=== PATIENT | male | born 1955 | race Caucasian/White ===

== ENCOUNTER 2016-12-04 19:09 | Emergency (ER) | payer OTHER ==
[~2016-12-04] VITALS: Ht 172.7 cm; Wt 72.5 kg
[2016-12-04 19:26] VITALS: Ht 172.7 cm; Wt 72.5 kg
[2016-12-04] MEDS ORDERED: KETOROLAC 30 MG INJ IM STA (20:11)
[2016-12-04] MEDS ORDERED: IBUP-1542 PO (20:13)
[2016-12-04] MEDS ORDERED: ALBU8.5H3 INH (20:13)
[2016-12-04] MEDS ORDERED: AZIT500T3 PO (20:13)
--- NOTE | 2016-12-04 20:23 | ERD ---
ER Documentation Chief Complaint Date/Time DATE: 12/04/16 TIME: 20:21 Chief Complaint Pt with generalized body pain andxious and tremors. HPI 61-year-old man presents with generalized body aches similar previous episodes and complaints of anxiety. He states similar symptoms have occurred in the past usually associated with anxiety. He also states he feels like he has a cold with recent congestion and cough. He is a smoker. He denies fevers or chills, no vomiting or diarrhea, no chest pain, no calf or leg swelling. Patient denies recent antibiotic use. ROS All systems reviewed and are negative except as per history of present illness. Medications Home Meds Active Scripts Ibuprofen* (Ibuprofen*) 600 Mg Tablet, 600 MG PO Q8 for PAIN AND/OR INFLAMMATION , #30 TAB Prov:MANI SHOOK MD 12/04/16 Azithromycin* (Zithromax*) 500 Mg Tablet, 500 MG PO DAILY for 5 Days, TAB Prov:MANI SHOOK MD 12/04/16 Albuterol Sulfate* (Proair HFA*) 8.5 Gm Hfa.aer.ad, 2 PUFF INH Q6H Y for COUGH, #1 INHALER Prov:MANI SHOOK MD 12/04/16 PMhx/Soc Diabetes mellitus, chronic obstructive pulmonary disease, hypertension, depression, schizoaffective disorder History of Surgery: Yes (wisdom teeth, other dental, tonsils) Anesthesia Reaction: No Hx Neurological Disorder: No Hx Respiratory Disorders: Yes (copd) Hx Cardiac Disorders: Yes (htn) Hx Psychiatric Problems: Yes (schizoaffective, depression) Hx Miscellaneous Medical Probl: No Hx Alcohol Use: Yes (seldom) Hx Substance Use: No Hx Tobacco Use: Yes Smoking Status: Current some day smoker FmHx Family History: No diabetes Physical Exam Vitals Vital Signs Date Time Temp Pulse Resp B/P Pulse Ox O2 Delivery O2 Flow Rate FiO2 12/04/16 19:26 97.7 92 18 123/82 100 Physical Exam GENERAL: Well-developed, well-nourished, well-hydrated, appears anxious HEENT: Moist mucous membranes, pink conjunctiva, no cervical spine tenderness or step-off deformities, no goiter, no jaundice or icterus, extraocular movements intact without pain. No submandibular induration, and no pharyngeal erythema NEURO: Alert and oriented 3, cranial nerves II through XII intact bilaterally, pupils equal round reactive to light, no focal deficits or facial asymmetry, sensation intact distally Strength 5/5 in upper and lower extremities bilaterally CARDIAC: Regular rate and rhythm, no murmurs rubs or gallops LUNGS: Clear bilaterally no wheezing crackles or stridor ABDOMEN: Soft nontender, no guarding, no rigidity, no rebound, no psoas sign no obturator sign. Normoactive bowel sounds SKIN: Warm and dry to touch, no abrasions, contusions, or hematomas, no lacerations, no ecchymosis, no target lesions, and without ulcers EXTREMITIES: No clubbing cyanosis or edema, calves are bilaterally symmetrical, no Homans sign, no popliteal cord sign. Distal pulses equal and bilateral PSYCH: Anxious Results 24 hrs Current Medications Medications (Trade) Dose Ordered Sig/Candida Route PRN Reason Start Time Stop Time Status Last Admin Dose Admin Alprazolam (Xanax) 0.5 mg ONCE ONCE PO 12/04/16 20:30 12/04/16 20:30 DC Ketorolac Tromethamine (Toradol) 30 mg ONCE STAT IM 12/04/16 20:11 12/04/16 20:12 DC 12/04/16 20:26 Lorazepam (Ativan) 1 mg ONCE ONCE PO 12/04/16 20:30 12/04/16 20:31 DC 12/04/16 20:26 Procedures/MDM EKG performed, read by me revealed a normal sinus rhythm at 72 bpm, normal axis , with a right ventricular conduction delay and a QRS duration of 102 ms, no concerning ST elevations or depressions noted. I administered lorazepam 1 mg p.o. and Toradol 30 mg intramuscular injection with good response. Patient's vital signs are normal and his symptoms including anxiety have improved. He looks well and will be managed as an outpatient with oral antibiotics and albuterol pump which she ran out of. Differential diagnoses considered, included but not limited to acute coronary syndrome, pulmonary embolism, aortic dissection, abdominal aortic aneurysm, sepsis, stroke, meningitis, encephalitis, pneumonia, appendicitis, cholecystitis , bowel obstruction, pyelonephritis, nephrolithiasis, cystitis, as well as metabolic, hematologic, and electrolyte abnormalities. As well as abscess, cellulitis, fractures, and dislocations. Patient feels much better at this time, and vital signs are normal, symptoms have improved. I did give strict instructions to return to the ED if symptoms continue or worsen, patient will otherwise follow-up with primary care physician. Patient understood instructions and agreed to plan. Departure Diagnosis: Primary Impression: Bronchitis Additional Impression: Anxiety Condition: Good Patient Instructions: Anxiety Reaction, Bronchitis With Wheezing (Adult) MANI SHOOK MD December 04, 2016 20:22
[2016-12-04] MEDS ORDERED: ALPRAZOLAM 0.25 MG TAB PO ONE (20:30)
[2016-12-04] MEDS ORDERED: LORAZEPAM 1 MG TAB PO ONE (20:30)
== END 2016-12-04 21:00 | disposition home or self-care (01) ==
LOC: E/R 19:09
DX: J20.9 Acute bronchitis, unspecified (principal); E11.9 Type 2 diabetes mellitus without complications; J44.9 Chronic obstructive pulmonary disease, unspecified; I10 Essential (primary) hypertension; F17.210 Nicotine dependence, cigarettes, uncomplicated
CPT/HCPCS: 93005; 96372; 99284; J1885

== ENCOUNTER 2016-12-17 22:35 | Inpatient (IN) | payer OTHER ==
[~2016-12-17] VITALS: Ht 182.9 cm; Wt 79.3 kg
[~2016-12-17 22:35] MED LIST: ALBU8.5H3 INH; ATROPINE 1 MG/10 ML SYRINGE ONE; AZIT500T3 PO; IBUP-1542 PO
[2016-12-17 22:50] LABS: ADD SCAN DIFF NO
[2016-12-17 22:55] LABS: BASOPHILS % 0.1 % (0.0-2.0); EOSINOPHILS % 0.1 % (0.0-7.0); HEMATOCRIT 39.5 % (42.0-52.0); LYMPHOCYTES # 1.6 10^3/ul (0.8-2.9); LYMPHOCYTES % 10.1 % (15.0-51.0); MEAN CORPUSCULAR HEMOGLOBIN 30.8 pg (29.0-33.0); MEAN CORPUSCULAR HGB CONC 32.9 g/dl (32.0-37.0); MEAN CORPUSCULAR VOLUME 93.6 fl (82.0-101.0); MEAN PLATELET VOLUME 9.7 fl (7.4-10.4); MONOCYTE # 0.4 10^3/ul (0.3-0.9); MONOCYTES % 2.7 % (0.0-11.0); NEUTROPHIL # 13.3 10^3/ul (1.6-7.5); NEUTROPHILS % 86.7 % (39.0-77.0); PLATELET COUNT 261 10^3/UL (140-415); RED BLOOD COUNT 4.22 10^6/ul (4.70-6.10); RED CELL DISTRIBUTION WIDTH 12.8 % (11.5-14.5); WHITE BLOOD COUNT 15.3 10^3/ul (4.8-10.8)
[2016-12-17] MEDS ORDERED: VERAPAMIL 5 MG INJ ONE ×2 (22:59→23:36)
[2016-12-17] MEDS ORDERED: MIDAZOLAM 1 MG/ML 2 ML INJ ONE (22:59)
[2016-12-17] MEDS ORDERED: HEPARIN 1000 UNITS/ML 10 ML INJ ONE (22:59)
[2016-12-17] MEDS ORDERED: LIDOCAINE 1% (MDV) 20 ML INJ ONE (22:59)
[2016-12-17] MEDS ORDERED: NITROGLYCERIN (IC) 100 MCG/ML INJ ONE (22:59)
[2016-12-17] MEDS ORDERED: IODIXANOL LOCM 100 ML BTL ONE (22:59)
[2016-12-17] MEDS ORDERED: FENTAnyl 50 MCG/ML VIAL ONE (22:59)
[2016-12-17] MEDS ORDERED: ONDANSETRON 4 MG INJ ONE ×3 (23:00→23:38)
[2016-12-17] MEDS ORDERED: ATORVASTATIN 80 MG TAB PO ONE (23:00)
[2016-12-17] MEDS ORDERED: CLOPIDOGREL 75 MG TAB PO ONE (23:00)
[2016-12-17] MEDS ORDERED: HEPARIN 1000 UNITS/ML 10 ML INJ IV ONE (23:00)
[2016-12-17] MEDS ORDERED: ASPIRIN 81 MG TAB PO ONE (23:00)
[2016-12-17] MEDS ORDERED: ONDANSETRON 4 MG INJ IV STA (23:05)
[2016-12-17 23:07] LABS: INR 1.11; PARTIAL THROMBOPLASTIN TIME 26.5 Sec (25.0-35.0); PROTIME 14.3 Sec (12.2-14.2); PT RATIO 1.1
[2016-12-17] MEDS ORDERED: SOD CHLORIDE 0.9% 500 ML ONE (23:14)
[2016-12-17] MEDS ORDERED: SOD CHLORIDE 0.9% 1,000 ML IV ONE ×2 (23:30)
[2016-12-17 23:32] LABS: CALCIUM 9.3 mg/dl (8.4-10.2); POTASSIUM 3.9 mmol/L (3.5-5.1)
[2016-12-17] MEDS ORDERED: PHENYLephrine 10 MG INJ ONE (23:32)
[2016-12-17 23:35] LABS: TROPONIN-I 0.94 ng/ml (0.00-0.12)
[2016-12-17 23:37] LABS: CREATININE 1.31 mg/dl (0.61-1.24)
[2016-12-17] MEDS ORDERED: NORepinephrine 8MG/250 ML (PMX 250 ML ONE (23:39)
[2016-12-17] MEDS ORDERED: ATROPINE 1 MG/10 ML SYRINGE ONE (23:49)
[2016-12-18] VITALS (51 sets, daily range): BP systolic 61–140; BP diastolic 33–126; PULSE 107–157; RESP 15–34; Ht 182.9 cm; Wt 79.3 kg
[2016-12-18] MEDS ORDERED: EPTIFIBATIDE 20 ML ONE (00:19)
[2016-12-18] MEDS ORDERED: PHENYLephrine 20MG IN 250 ML 250 ML ONE (00:20)
[2016-12-18] MEDS ORDERED: LIDOCAINE 2 GM/D5W 500 ML ONE (00:21)
[2016-12-18] MEDS ORDERED: AMIODARONE 150 MG INJ ONE (00:32)
[2016-12-18] MEDS ORDERED: HEPARIN 1000 UNITS/ML 10 ML INJ IV ONE (01:00)
[2016-12-18] MEDS ORDERED: HEPARIN 25000 UNITS/250 ML 250 ML IV SCH (01:00)
[2016-12-18] MEDS ORDERED: HEPARIN 1000 UNITS/ML 10 ML INJ IV PRN (01:00)
--- NOTE | 2016-12-18 01:17 | RADRPT ---
PROCEDURE: XR Chest. CLINICAL INDICATION: Chest pain. TECHNIQUE: Single frontal view of the chest. COMPARISON: None. FINDINGS: Mild cardiomegaly. Pulmonary vascular ingestion and mild patchy lung base atelectasis versus airspa ce disease. No signs of pleural fluid or pneumothorax are seen. The osseous structures and soft tiss ues are unremarkable. IMPRESSION: Mild failure. RPTAT: [facility] Physician Philippe Date Time Electronically viewed and signed by Holly Fraser Physician on 12/18/2016 01:17 RS/
[2016-12-18] MEDS: LIDOCAINE 2 GM/D5W 500 ML IV SCH ×2 (01:50→08:42)
--- NOTE | 2016-12-18 03:04 | ERA ---
ER Documentation Chief Complaint Date/Time DATE: 12/17/16 TIME: On arrival Chief Complaint Chest pain HPI The patient is a 61-year-old male, presenting to the ER because of substernal chest pain radiating down to the left arm for 2 hours. He has similar symptoms previously, denies chest pain with exertion or vomiting. He was treated by EMS with one nitroglycerin that dropped his blood pressure and aspirin 160 mg p.o. with some response. He denies dyspnea, abdominal pain, vomiting, dysuria, diarrhea. On arrival to the ER, after I reviewed the EMS EKG, I activated a code STEMI Past medical history: Schizoaffective disorder, depression, diabetes mellitus, COPD, hypertension ROS All systems reviewed and are negative except as per history of present illness. Medications Home Meds Active Scripts Ibuprofen* (Ibuprofen*) 600 Mg Tablet, 600 MG PO Q8 for PAIN AND/OR INFLAMMATION , #30 TAB Prov:MANI SHOOK MD 12/04/16 Azithromycin* (Zithromax*) 500 Mg Tablet, 500 MG PO DAILY for 5 Days, TAB Prov:MANI SHOOK MD 12/04/16 Albuterol Sulfate* (Proair HFA*) 8.5 Gm Hfa.aer.ad, 2 PUFF INH Q6H Y for COUGH, #1 INHALER Prov:MANI SHOOK MD 12/04/16 Allergies Allergies: Coded Allergies: fluphenazine (Verified Allergy, Unknown, 12/17/16) PMhx/Soc History of Surgery: Yes (wisdom teeth, other dental, tonsils) Anesthesia Reaction: No Hx Neurological Disorder: No Hx Respiratory Disorders: Yes (copd) Hx Cardiac Disorders: Yes (htn) Hx Psychiatric Problems: Yes (schizoaffective, depression) Hx Miscellaneous Medical Probl: No Hx Alcohol Use: Yes (seldom) Hx Substance Use: No Hx Tobacco Use: Yes Smoking Status: Former smoker Physical Exam Vitals Vital Signs Date Time Temp Pulse Resp B/P Pulse Ox O2 Delivery O2 Flow Rate FiO2 12/17/16 22:40 Nasal Cannula 6 12/17/16 22:35 96.6 125 22 101/65 100 Physical Exam Const: No acute distress. Head: Atraumatic. Eyes: Normal Conjunctiva. ENT: Normal External Ears, Nose and Mouth. Neck: Full range of motion. No meningismus. Resp: Clear to auscultation bilaterally. Cardio: Regular but tachycardic Abd: Soft, non distended, normal bowel sounds, non tender. Skin: No petechiae or rashes. Back: No midline or flank tenderness. Ext: No cyanosis, or edema. Neur: Awake and alert. No focal deficit Psych: Normal Mood and Affect. Result Diagram: 12/17/16223212/17/162232 Results 24 hrs Laboratory Tests Test 12/17/16 22:33 White Blood Count 15.310^3/ul Red Blood Count 4.2210^6/ul Hemoglobin 13.0g/dl Hematocrit 39.5% Mean Corpuscular Volume 93.6fl Mean Corpuscular Hemoglobin 30.8pg Mean Corpuscular Hemoglobin Concent 32.9g/dl Red Cell Distribution Width 12.8% Platelet Count 40673^3/UL Mean Platelet Volume 9.7fl Neutrophils % 86.7% Lymphocytes % 10.1% Monocytes % 2.7% Eosinophils % 0.1% Basophils % 0.1% Nucleated Red Blood Cells % 0.0/100WBC Neutrophils # 13.310^3/ul Lymphocytes # 1.610^3/ul Monocytes # 0.410^3/ul Eosinophils # 0.010^3/ul Basophils # 0.010^3/ul Nucleated Red Blood Cells # 0.010^3/ul Prothrombin Time 14.3Sec Prothrombin Time Ratio 1.1 INR International Normalized Ratio 1.11 Activated Partial Thromboplast Time 26.5Sec Sodium Level 141mmol/L Potassium Level 3.9mmol/L Chloride Level 103mmol/L Carbon Dioxide Level 20mmol/L Anion Gap 22 Blood Urea Nitrogen 23mg/dl Creatinine 1.31mg/dl Glucose Level 118mg/dl Calcium Level 9.3mg/dl Troponin I 0.940ng/ml Current Medications Medications (Trade) Dose Ordered Sig/Candida Route PRN Reason Start Time Stop Time Status Last Admin Dose Admin Heparin Sodium (Porcine) (Heparin (1000 Units/ml)) 5,000 unit ONCE ONCE IV 12/17/16 23:00 12/17/16 23:01 DC 12/17/16 22:48 Clopidogrel Bisulfate (plaVIX) 600 mg ONCE ONCE PO 12/17/16 23:00 12/17/16 23:01 DC 12/17/16 22:45 Aspirin (Aspirin) 162 mg ONCE ONCE PO 12/17/16 23:00 12/17/16 23:01 DC 12/17/16 22:45 Atorvastatin Calcium (Lipitor) 80 mg ONCE ONCE PO 12/17/16 23:00 12/17/16 23:01 DC 12/17/16 22:48 Heparin Sodium (Porcine) (Heparin (1000 Units/ml)) 10,000 unit STK-MED ONCE .ROUTE 12/17/16 22:59 12/17/16 23:00 DC Lidocaine (Xylocaine 1% (Mdv) 20 ml) 20 ml STK-MED ONCE .ROUTE 12/17/16 22:59 12/17/16 23:00 DC Iodixanol 100 ml 100 ml STK-MED ONCE .ROUTE 12/17/16 22:59 12/17/16 23:00 DC Heparin Sodium/ Sodium Chloride (Heparin 1000 Units/NS (A-Line)) 1,500 ml @ ud STK-MED ONCE .ROUTE 12/17/16 22:59 12/17/16 23:00 DC Fentanyl (Sublimaze) 100 mcg STK-MED ONCE .ROUTE 12/17/16 22:59 12/17/16 23:00 DC Midazolam HCl (Versed) 2 mg STK-MED ONCE .ROUTE 12/17/16 22:59 12/17/16 23:00 DC Verapamil HCl (Verapamil) 5 mg STK-MED ONCE .ROUTE 12/17/16 22:59 12/17/16 23:00 DC Nitroglycerin (Nitroglycerin (Intracoronary)) 1,000 mcg STK-MED ONCE .ROUTE 12/17/16 22:59 12/17/16 23:00 DC Ondansetron HCl (Zofran Inj) 4 mg STK-MED ONCE .ROUTE 12/17/16 23:00 12/17/16 23:01 DC Ondansetron HCl (Zofran Inj) 4 mg ONCE STAT IV 12/17/16 23:05 12/17/16 23:06 DC Procedures/MDM EKG: Read by emergency physician Rate/Rhythm: Atrial fibrillation at 120 beats/min with RVR QRS, ST, T-waves: Acute inferior wall PR with reciprocal change, no PVC Impression: Abnormal EKG MEDICAL MAKING DECISION: The patient is a 61-year-old male, with multiple cardiac risk factors, presenting with acute STEMI and acute new onset atrial fibrillation. Consultation: I discussed the patient with the on-call culvert installer Dr. Petty at 10:35 PM, who recommended heparin 5000 units IV, Plavix 600 mg p.o., additional aspirin 162 mg p.o., Lipitor 80 mg p.o.. All were given prior to going to the [facility] labs and chest x-ray were pending prior to going to the [facility] Critical Care: Time: 35 minutes excluding all billable procedures. Treatments/Evaluations: Close monitoring and treatment of unstable vital signs, cardiorespiratory, and neurologic status, while maintaining tight balance of fluid, respiratory, and cardiac interventions. Departure Diagnosis: Primary Impression: ST elevation myocardial infarction (STEMI) Condition: Critical Comments I discussed the findings with the patient. I discussed the patient with the on- call hospitalist Dr. Lamb at 11:10 PM who was made aware of the lab, the treatment, the patient condition. The patient is admitted to ICU after cardiac cath LISA BLANCO MD December 18, 2016 03:04
[2016-12-18 03:08] LABS: ADD SCAN DIFF NO
[2016-12-18 03:11] LABS: BASOPHILS % 0.1 % (0.0-2.0); HEMATOCRIT 35.4 % (42.0-52.0); HEMOGLOBIN 12.1 g/dl (14.0-18.0); LYMPHOCYTES # 0.8 10^3/ul (0.8-2.9); LYMPHOCYTES % 4.5 % (15.0-51.0); MEAN CORPUSCULAR HEMOGLOBIN 31.8 pg (29.0-33.0); MEAN CORPUSCULAR HGB CONC 34.2 g/dl (32.0-37.0); MEAN CORPUSCULAR VOLUME 93.2 fl (82.0-101.0); MONOCYTE # 0.6 10^3/ul (0.3-0.9); MONOCYTES % 3.8 % (0.0-11.0); NEUTROPHIL # 15.2 10^3/ul (1.6-7.5); NEUTROPHILS % 91.1 % (39.0-77.0); PLATELET COUNT 269 10^3/UL (140-415); RED CELL DISTRIBUTION WIDTH 12.7 % (11.5-14.5); WHITE BLOOD COUNT 16.7 10^3/ul (4.8-10.8)
[2016-12-18] MEDS ORDERED: NORepinephrine 8MG/250 ML (PMX 250 ML IV SCH (03:30)
[2016-12-18] MEDS ORDERED: PHENYLephrine 20MG IN 250 ML 250 ML IV SCH (03:30)
[2016-12-18 03:36] LABS: PROTIME 16.3 Sec (12.2-14.2); PT RATIO 1.3
[2016-12-18] MEDS: PHENYLephrine 40 MG in DEXTROSE 5% 496 ML IV SCH ×3 (03:46→13:48)
[2016-12-18 04:27] LABS: AADO2 Arterial 646.4 mmHg (7.0-24.0); Arterial Base Excess -8.7 mmol/L (-3.0-3); Arterial COHb 0.3 % (0.0-3.0); Arterial Fraction of Oxyhgb 77.4 % (93.0-99.0); Arterial HCO3 14.6 mmol/L (22.0-26.0); Arterial MetHb 0.3 % (0.0-1.5); Arterial Total Hemglobin 13.5 g/dl (12.0-18.0); MODE NON REBREATHER
[2016-12-18] MEDS ORDERED: LORAZEPAM 2 MG INJ IV PRN (04:30)
[2016-12-18] MEDS ORDERED: IPRATROPIUM (HFA) 12.9 GM INHALER INH PRN (04:30)
[2016-12-18] MEDS ORDERED: LEVALBUTEROL (HFA) 15 GM INHALER INH PRN (04:30)
[2016-12-18] MEDS ORDERED: ONDANSETRON 4 MG INJ IV PRN (04:30)
[2016-12-18] MEDS ORDERED: PROPOFOL 100 ML ONE (05:36)
[2016-12-18] MEDS: PROPOFOL 100 ML IV SCH ×2 (05:53→15:47)
[2016-12-18] MEDS ORDERED: DOBUTamine/D5W 1 MG/ML DRIP 250 ML IV SCH (06:00)
[2016-12-18] MEDS ORDERED: PROPOFOL 100 ML IV SCH (06:00)
[2016-12-18] MEDS ORDERED: FENTAnyl (DRIP) 1000 mcg/100mL 100 ML IV SCH (06:00)
--- NOTE | 2016-12-18 06:00 | EN ---
Date/Time of Note Date/Time of Note DATE: 12/18/16 TIME: 05:57 ER Progress Note I was asked by his physician Dr. Lamb to intubate the patient because of acute respiratory failure after cardiac catheterization due to acute STEMI. Dr. Lamb is at the bedside Endotracheal Intubation by me: Pre assessment performed. See preceding note for details. Pre-oxygenation performed with 100% oxygen RSI: Performed w/o complication or hypoxic events. Medications as ordered. Blade: [place] Scope ET Tube: 7.5cm Depth: 23 cm at the lip Intubation confirmed by colorimetric CO2, equal breath sounds, quiet over the stomach. Chest x-ray is pending and will be reviewed by Dr. Lamb I transfer the care back to his physician Dr. Lamb at the bedside after intubation LISA BLANCO MD December 18, 2016 05:59
[2016-12-18 06:09] LABS: PARTIAL THROMBOPLASTIN TIME > 180.0 Sec (25.0-35.0)
[2016-12-18 06:43] LABS: AADO2 Arterial 598.8 mmHg (7.0-24.0); Arterial Base Excess -12.6 mmol/L (-3.0-3); Arterial COHb 0.3 % (0.0-3.0); Arterial Fraction of Oxyhgb 91.6 % (93.0-99.0); Arterial HCO3 14.4 mmol/L (22.0-26.0); Arterial MetHb 0.4 % (0.0-1.5); Arterial Total Hemglobin 13.2 g/dl (12.0-18.0); MODE VENT - AC
--- NOTE | 2016-12-18 06:50 | HP ---
DATE OF ADMISSION: 12/18/2016 CHIEF COMPLAINT: Chest pain. HISTORY OF PRESENT ILLNESS: The patient is a 61-year-old male with a history of COPD, hypertension, type 2 diabetes, depression, and schizoaffective disorder who was brought to the ER for chest pain. The patient was found in the lobby of the facility that he resides at, [facility]. Reportedly, he was sitting on the chair, but he slumped forward and then was complaining of chest pain. When Eleazar LOPEZ arrived, EKG shows STEMI, he was brought to the ER as a code STEMI. He was taken to the clinical laboratory science professor emergently and underwent PCI with stent to RCA and to the circumflex. His ejection fraction was no kit to be 10%, and a balloon pump has been placed. While he was in the clinical laboratory science professor, the patient was al so hypotensive and was started on 2 pressors and currently is in the ICU. In the ICU, the patient w as awake, but during his stay, he became hypoxic with oxygen saturation in the 70s. Dr. Petty, the c ardiologist, has already talked to [facility] for transfer, and we just got word that there is a b ed available. Given his continued to hypoxia, the patient was just intubated, and he will be transf erred to [place] around 10 a.m. in the morning. When he came in, his initial blood pressure was 101/ 65, heart rate 125, respiratory rate 22, temperature 96.6, and he was 100% on 6 liters. Laboratory value shows a WBC of 15 which increased to 17 since then and hemoglobin 13 which dropped to 12. Cre atinine 1.31, BUN 23, bicarbonate 28. His initial troponin was 0.94, and after cardiac catheterizat ion it was 120. His CK is 2800. Chest x-ray shows pulmonary vascular congestion and mild patchy cam ng base atelectasis, mild cardiomegaly, and mild failure. REVIEW OF SYSTEMS: Unable to fully assess. PAST MEDICAL HISTORY: As per HPI. PAST SURGICAL HISTORY: Unknown. SOCIAL HISTORY: Unknown. ALLERGIES: NO KNOWN DRUG ALLERGIES. HOME MEDICATIONS: 1. Albuterol. 2. Ibuprofen. 3. Benztropine 4. Risperidone. 5. Trazodone. PHYSICAL EXAMINATION: VITAL SIGNS: On the monitor, blood pressure 96/55, heart rate in the 130s, respiratory rate 25, and oxygen saturation of 78% on 100% FIO2 on a vent. GENERAL: The patient is currently intubated and sedated. HEENT: No obvious head deformity. Pupils are reactive to light. CARDIOVASCULAR: Tachycardic with regular rhythm. LUNGS: Decreased breath sounds and sounds slightly congested. ABDOMEN: Soft. No grimaces noted on palpation. EXTREMITIES: No edema. NEUROLOGIC: Before intubation, the patient was able to move all his extremities. There was no foca l deficit. LABORATORY DATA: Pertinent positives as mentioned in HPI. IMAGING DATA: Chest x-ray results as mentioned in the HPI. IMPRESSION: 1. Acute ST elevation myocardial infarction status post percutaneous coronary intervention with matthew nt to RCA and circumflex. 2. Hypoxic respiratory failure, status post intubation. 3. Cardiogenic shock, currently on 2 pressors. 4. Severe systolic dysfunction with an ejection fraction of 10%. 5. History of chronic obstructive pulmonary disease. 6. History of hypertension. 7. History of type 2 diabetes. 8. History of depression. 9. History of seasonal affective disorder. 10. Leukocytosis. 11. Presumed acute kidney injury. 12. Mild metabolic acidosis. PLAN: We will continue vent support. We will continue his current cardiac medications including li docaine. We will continue pressor support. Currently, the patient is awaiting transfer to [facility] for continued care. We will continue close balloon pump care. We will place a pulmonary consu lt until the patient is transferred to [facility]. He will also continue to be followed by cardio logy until transfer process occurs. Total critical time spent is about 30 minutes. Dictated By: JESSICA RIDDLE/AAMIR Conf#: [id number] DID#: [id number]
--- NOTE | 2016-12-18 06:56 | DS ---
DATE OF ADMISSION: 12/18/2016 DATE OF DISCHARGE: 12/18/2016 DISCHARGE DIAGNOSES: 1. Acute ST elevation myocardial infarction status post percutaneous coronary intervention with matthew nt to RCA and circumflex. 2. Cardiogenic shock, currently on 2 pressor. 3. Balloon pump placement. 4. Severe systolic dysfunction with EF of 10%. 5. Presumed acute kidney injury. 6. Hypoxic respiratory failure status post intubation. 7. History of type 2 diabetes. 8. History of hypertension. 9. History of COPD. 10. History of schizoaffective disorder. 11. History of depression. CONSULTATIONS: Cardiology, Dr. Petty. HOSPITAL COURSE: The patient is a 61-year-old male with the above stated past medical history who p resented as a code STEMI. He was found on his chair, slumped forward, and afterward complaining of chest pain. Field EKG showed STEMI, and the patient was presented to the ER and emergently was take n to the laborer powerhouse and underwent PCI with stent to RCA and circumflex. The balloon pump was placed, and he was found to have an EF of 10%. During the laborer powerhouse, he was hypotensive and has been started on pressors and continued to be on 2 pressors until now. Once he was admitted to ICU, he was hypox ic with oxygen saturation in the 70s, and he is, as such, intubated. Laboratory value when he came in showed WBC of 15 which increased to 17, hemoglobin 13, BUN 23, creatinine 1.31, bicarbonate 20. Initial troponin 0.94. After cardiac catheterization, it was 120. Creatinine kinase was 28 to 38. Chest x-ray shows pulmonary vascular congestion and mild patchy lung base atelectasis and mild card iomegaly. The patient will be transferred to [facility] after Dr. Petty, the rn access, made ar rangements. FOLLOWUP INSTRUCTIONS: The patient is being transferred to [facility] for higher level of care. Total time spent on this discharge summary is about 35 minutes. Dictated By: JESSICA RIDDLE/AAMIR Conf#: [id number] DID#: [id number]
[2016-12-18] MEDS: ACETAMINOPHEN 650MG/20.3ML CUP NGT PRN ×2 (08:48→14:51)
[2016-12-18] MEDS ORDERED: CLOPIDOGREL 75 MG TAB PO SCH (09:00)
--- NOTE | 2016-12-18 09:09 | RADRPT ---
PROCEDURE: XR Chest. CLINICAL INDICATION: Nasogastric tube placement. Balloon pump placement. TECHNIQUE: Single frontal chest x-ray. COMPARISON: 12/17/2016 FINDINGS: There has been interval placement of an endotracheal tube with the tip 4 cm above the mita, nasoga stric tube with tip extending into the stomach excluded from image, intra-aortic balloon pump with t ip at the proximal descending thoracic aorta. There is increase hilar vascular and interstitial con gestion with perihilar edema new since prior exam. There are no significant pleural effusions. The cardiomediastinal silhouette is unremarkable. The osseous structures are intact. IMPRESSION: Endotracheal tube, nasogastric tube, intra-aortic balloon pump in place. Hilar vascular and interstitial congestion with perihilar edema new since previous exam.. RPTAT: [facility] .Pipe Martino MD, MD Date Time Electronically viewed and signed by .Pipe Martino MD, MD on 12/18/2016 09:09 .L/
[2016-12-18 09:17] LABS: ADD SCAN DIFF NO
[2016-12-18 09:19] LABS: ABNORMAL IP MESSAGE 1; BASOPHILS % 0.1 % (0.0-2.0); HEMATOCRIT 38.2 % (42.0-52.0); HEMOGLOBIN 12.7 g/dl (14.0-18.0); LYMPHOCYTES # 0.5 10^3/ul (0.8-2.9); LYMPHOCYTES % 3.6 % (15.0-51.0); MEAN CORPUSCULAR HEMOGLOBIN 31.3 pg (29.0-33.0); MEAN CORPUSCULAR HGB CONC 33.2 g/dl (32.0-37.0); MEAN CORPUSCULAR VOLUME 94.1 fl (82.0-101.0); MONOCYTE # 0.7 10^3/ul (0.3-0.9); MONOCYTES % 4.9 % (0.0-11.0); NEUTROPHIL # 13.5 10^3/ul (1.6-7.5); NEUTROPHILS % 91.1 % (39.0-77.0); PLATELET COUNT 282 10^3/UL (140-415); RED BLOOD COUNT 4.06 10^6/ul (4.70-6.10); RED CELL DISTRIBUTION WIDTH 12.8 % (11.5-14.5); WHITE BLOOD COUNT 14.8 10^3/ul (4.8-10.8)
[2016-12-18] MEDS ORDERED: morphine 2 MG INJ ONE (09:26)
[2016-12-18 09:40] LABS: AADO2 Arterial 509.1 mmHg (7.0-24.0); Arterial Base Excess -9.9 mmol/L (-3.0-3); Arterial COHb 0.3 % (0.0-3.0); Arterial Fraction of Oxyhgb 97.9 % (93.0-99.0); Arterial HCO3 16.3 mmol/L (22.0-26.0); Arterial MetHb 0.5 % (0.0-1.5); Arterial Total Hemglobin 13.8 g/dl (12.0-18.0); MODE VENT - AC
[2016-12-18 09:52] LABS: ALBUMIN 3.2 g/dl (3.3-4.9)
[2016-12-18 09:55] LABS: BILIRUBIN,INDIRECT 0.3 mg/dl (0-1.1); BILIRUBIN,TOTAL 0.3 mg/dl (0.2-1.3); CREATININE 1.57 mg/dl (0.61-1.24); TOTAL PROTEIN 6.4 g/dl (6.1-8.1)
[2016-12-18 09:56] LABS: CALCIUM 7.8 mg/dl (8.4-10.2); CHOL/HDL RATIO 5.8 RATIO
[2016-12-18] MEDS: morphine 2 MG INJ IV PRN ×2 (10:00→15:16)
[2016-12-18] MEDS ORDERED: DEXTROSE 50% 50 ML SYRINGE IV PRN ×2 (10:30)
[2016-12-18] MEDS ORDERED: GLUCOSE GEL 15 GRAM TUBE BUCCAL PRN (10:30)
[2016-12-18] MEDS ORDERED: INSULIN ASPART [NOVOLOG] 3 ML PEN SC ONE (10:30)
[2016-12-18] MEDS ORDERED: GLUCAGON 1 MG INJ IM PRN (10:30)
[2016-12-18] MEDS ORDERED: GLUCOSE GEL 15 GRAM TUBE PO PRN ×2 (10:30)
[2016-12-18] MEDS ORDERED: INSULIN REGULAR, HUMAN 100 UNIT/1 ML 3ML VIAL IV ONE (11:00)
[2016-12-18] MEDS ORDERED: DEXTROSE 50% 50 ML SYRINGE IV ONE (11:00)
[2016-12-18] MEDS ORDERED: NORepinephrine 8MG/250 ML (PMX 0 ML ONE (11:26)
[2016-12-18 14:13] LABS: AADO2 Arterial 264.3 mmHg (7.0-24.0); Arterial Base Excess -9.4 mmol/L (-3.0-3); Arterial COHb 0.3 % (0.0-3.0); Arterial Fraction of Oxyhgb 98.8 % (93.0-99.0); Arterial HCO3 14.6 mmol/L (22.0-26.0); Arterial MetHb 0.5 % (0.0-1.5); Arterial Total Hemglobin 13.2 g/dl (12.0-18.0); MODE VENT - AC
[2016-12-18] MEDS ORDERED: INSULIN ASPART [NOVOLOG] 3 ML PEN SC SCH (17:00)
--- NOTE | 2016-12-19 07:46 | SP ---
DATE OF PROCEDURE: 12/17/2016 INDICATION FOR PROCEDURE: ST elevation myocardial infarction. PROCEDURES: 1. Selective left and right coronary angiography. 2. LV gram with LV pressure measurement, left heart catheterization. 3. Complex right coronary PTCA/PCI, distal RCA with 2.75 x 16 mm drug-eluting stent and mid RCA wit h 4.0 x 24 mm drug-eluting stent. 4. Complex intervention of proximal left circumflex with 3.5 x 16 mm drug-eluting stent. 5. Successful implantation of intra-aortic balloon pump via right femoral artery. 6. Successful central line placement of the left common femoral vein triple lumen. 7. Supervised procedural sedation. 8. Fluoroscopy. 9. Successful thrombectomy of right coronary artery. 10. Successful thrombectomy of the left circumflex artery. DESCRIPTION: After informed consent, the patient was brought to cardiac catheterization lab. The p atient initially arrived into ER with inferior ST elevation MA with significant chest pain and chest pressure. The patient is a 61-year-old male with no significant past medical history, [facility] with a history of possible schizophrenia, who came in with midsternal chest pressure-like sympto ms, found to have a non-ST elevation MA in the ER, brought to cardiac catheterization lab emergently . Right radial artery was accessed with a 6-Algerian slender sheath over ____ wire with a ____ cathet er engaged the right coronary artery ____ distal RCA 100% occluded, thrombotic. Followed by that, R unthrough wire was crossed through lesion, and successful balloon angioplasty was performed with 2.5 x 12 mm drug-eluting balloon. Followed by that, there was DONNA 1 to 2 flow established again, whic h was again closed off. Followed by that, we did re-balloon angioplasty with a 2.5 x 12 mm balloon and established flow. Followed by that, guide was exchanged into a 6-Algerian guide, a JR4, and wire was crossed again to the lesion, and successful stent was placed, 2.75 x 16 mm drug-eluting stent. Followed by that, there is still DONNA 2 flow, so successful Pronto was performed into the distal RCA . Followed by that, we successfully placed 4.0 x 24 mm drug-eluting stent into the mid RCA stenosis . Followed by that, we gave coronary nitroglycerin as well as intracoronary verapamil and improved the flow with DONNA 2 to 3 flow. Followed by that, we engaged a diagnostic catheter, also JL4, into the left system and found to have occluded proximal circumflex as well as LAD. Followed by that, im mediately switched to guiding catheter, engaged into the left main. Followed by that, Runthrough wi re was crossed from the circumflex lesion, and second Runthrough wire was crossed into the LAD into septal branch. At this time, patient's blood pressure stayed into ____ 60 of systolic, so the patie nt was given Teofilo-Synephrine 100 mcg x2, followed by that was started on Levophed and dobutamine drip . Followed by that, we crossed a 2.5 x 12 mm balloon into the proximal circumflex area. Balloon __ __ performed and established DONNA 2 flow. Followed by that, successful stenting of the circumflex a rtery was performed with a 3.5 x 16 mm drug-eluting balloon. Followed by that, still distal circumf doc had acute thrombotic cutoff, so we ended up successfully doing a Pronto thrombectomy of the dist al circumflex and established the flow. Followed by that, attention was placed into the LAD, and LA D pictures was taken and found to have the mid LAD LEATHER SPRAYER with calcification. At this time, we were no t sure there was an acute occlusion of the LAD as well versus chronic total occlusion. We attempted the Runthrough wire, were unable to cross. Runthrough wire was sutured to Fielder XT wire. Fielde r XT wire was successfully crossed through the lesion but unable to cross a 2.5 x 12 mm balloon, so it was downgraded to 1.25 balloon, which was also unable to pass. Followed by that, we put a Corsai r down into the LAD and injected through Corsair, which found to have probably coronary-cameral fist luba, so we took out the Corsair and deemed to be LAD as chronically occluded. At this time, the pat ient's blood pressure on 2 pressures was still hanging into systolic of 60s, so we decided to put a balloon pump on the patient. Before placing the balloon pump, LV gram and LVEDP were performed whic h were found to have EF of 10%, significantly reduced. Followed by that, left groin was prepped, an d 4-Algerian sheath was introduced into right femoral artery, and femoral angiograph was performed. F sen by that, successful intra-aortic balloon pump was placed over the 0.25 wire. Followed by th at, left groin central line was placed with a triple lumen. Procedure was finished without any complication. The patient at time of the procedure was on a ball oon pump with 2 pressures with a blood pressure systolic over 80 with a MAP of 40 to 45. The patien t still in cardiogenic shock and possible requires transfer. COMPLICATIONS: None. CONTRAST: 300 mL CORONARY FINDINGS: 1. Left main: Mild diffuse disease. 2. LAD: Proximal moderate diffuse disease with ectasia followed by mid segment 100% occlusion. 3. Circumflex artery: Proximal 100% thrombotic occluded with a large OM branch. 4. Right coronary artery: Proximal mild diffuse disease. Mid segment has 70% stenosis followed by distal segment thrombotic 100% occluded. LEFT VENTRICULAR FINDINGS: 1. LVEDP was 30 mmHg. 2. LVEF is 10%. ABDOMINAL AORTIC ROOT INJECTION: Abdominal aortography found to have abdominal aortic aneurysm. CONCLUSIONS: 1. Acute thrombotic occluded right coronary artery and circumflex artery. Successful complex percu taneous coronary intervention of right coronary artery distal segment with 2.75 x 16 mm and mid segm ent with 4.0 x 24 mm. 2. Successful complex percutaneous coronary intervention of left circumflex proximal segment with 3 .5 x 16 mm drug-eluting stent. 3. Successful implantation of intra-aortic balloon pump. 4. Successful triple lumen placement. RECOMMENDATIONS: The patient is in cardiogenic shock with ____ aortic balloon pump, aspirin and Erin vix. The patient may need to get transfer to tertiary center for Impella support and possible LVAD. Continue current management. [facility] been contacted for higher level of care and transfer, awaiting transfer. Transfer patient to ICU here. Dictated By: ANNITA MURRIETA/AAMIR Conf#: [id number] DID#: [id number]
--- NOTE | 2016-12-19 15:09 | RADRPT ---
Vent Rate: 145 bpm RR Interval: 0 msec VT Interval: 136 msec QRS Duration: 104 msec QT Interval: 356 msec QTC Interval: 552 msec P-R-T [place]: 79 - 75 - 81 degrees Sinus tachycardia vs possible atrial flutter Possible Lateral infarct , age undetermined Possible Inferior infarct , age undetermined Abnormal ECG Electronically Signed By: Faizan West [id number]
[2016-12-20] MEDS ORDERED: EPTIFIBATIDE 100 ML IV ONE (05:50)
--- NOTE | 2016-12-21 08:59 | RADRPT ---
Echocardiogram Report Patient Name: STEFANI SALAZAR Gender: Male Date: 1955 Study Date: 18-Dec-2016 Nursing Program Chair: Y[facility] Location: 104 Ref. Physician: TIMOTHY PETTY Quality: Technically Difficult Study Procedures: Transthoracic echocardiogram with complete 2D, M-Mode, and doppler examination. Indications: STEMI. 2D/M Mode Doppler Measurement Value Normal Ranges Measurement Value Normal Ranges LVIDd 2D 4.7 3.5 - 5.6 cm AV Peak Roverto 2.1 m/sec LVIDs 2D 4.3 2.1 - 4.1 cm AV Peak PG 18.1 mmHg LVPWd 2D 1.1 0.6 - 1.1 cm LVOT Peak Roverto 1.2 m/sec IVSd 2D 1.2 0.6 - 1.1 cm LVOT Peak PG 5.3 mmHg AoR Diam 2D 2.7 2.0 - 3.7 cm EDV 2D 104.1 cm3 ESV 2D 79.5 cm3 LA Dimen 2D 3.9 2.3 - 4.0 cm Findings Left Ventricle: Normal left ventricular cavity size. Left ventricular wall thickness upper limits of normal. Severe global left ventricular systolic dysfunction. Ejection fraction is visually estimated at 15 %. Abnormal Diastolic Function. Right Ventricle: Normal right ventricular size. Hyperdynamic right ventricular systolic function. Left Atrium: The left atrium is normal in size. Right Atrium: The right atrium is normal in size. Mitral Valve: Mild mitral leaflet calcification. Trace mitral regurgitation. Aortic Valve: Normal appearance of the aortic valve. No significant aortic stenosis or insufficiency. Trace aortic valve regurgitation. Tricuspid Valve: Tricuspid valve not well visualized. There is trace tricuspid regurgitation. Pericardium: Trivial pericardial effusion. Aorta: Normal aortic root. IVC: Inferior vena cava without respiratory collapse, however, patient on ventilator. Conclusions Normal left ventricular cavity size. Left ventricular wall thickness upper limits of normal. Severe global left ventricular systolic dysfunction. Ejection fraction is visually estimated at 15 %. Abnormal Diastolic Function. Normal right ventricular size. Hyperdynamic right ventricular systolic function. The left atrium is normal in size. The right atrium is normal in size. Mild mitral leaflet calcification. Trace mitral regurgitation. Normal appearance of the aortic valve. No significant aortic stenosis or insufficiency. Trace aortic valve regurgitation. Electronically Signed By: Timothy Petty 21-Dec-2016 08:58:43 -0700 Patient Name: STEFANI SALAZAR Study Date: 18-Dec-2016 [id number]
== END 2016-12-18 18:00 | disposition short-term general hospital (02) | DRG 270 ==
LOC: E/R 22:35 → ICU 23:06 → SDS 23:06 → CCL 23:06 → ICU 12-18 01:04 → CCL 12-18 01:04 → ICU 12-18 02:05 → UNDOADMIN 12-18 02:05 → UNDODISIN 12-18 18:00
PROVIDERS: ADMIT Internal Medicine; ATTEND Internal Medicine Cardiovascular Disease
PROC: 02C13ZZ Extirpation of Matter from Coronary Artery, Two Arteries, Percutaneous Approach (ICD-10-PCS; 2016-12-17)
PROC: 4A023N7 Measurement of Cardiac Sampling and Pressure, Left Heart, Percutaneous Approach (ICD-10-PCS; 2016-12-17)
PROC: B211YZZ Fluoroscopy of Multiple Coronary Arteries using Other Contrast (ICD-10-PCS; 2016-12-17)
PROC: B215YZZ Fluoroscopy of Left Heart using Other Contrast (ICD-10-PCS; 2016-12-17)
PROC: 027136Z Dilation of Coronary Artery, Two Arteries with Three Drug-eluting Intraluminal Devices, Percutaneous Approach (ICD-10-PCS; principal; 2016-12-17 23:00)
PROC: 5A02210 Assistance with Cardiac Output using Balloon Pump, Continuous (ICD-10-PCS; 2016-12-17 23:00)
PROC: 5A1935Z Respiratory Ventilation, Less than 24 Consecutive Hours (ICD-10-PCS; 2016-12-18)
PROC: 0BH17EZ Insertion of Endotracheal Airway into Trachea, Via Natural or Artificial Opening (ICD-10-PCS; 2016-12-18)
DX: I21.19 ST elevation (STEMI) myocardial infarction involving other coronary artery of inferior wall (principal); R57.0 Cardiogenic shock; J96.01 Acute respiratory failure with hypoxia; N17.9 Acute kidney failure, unspecified; E87.2 Acidosis; E11.9 Type 2 diabetes mellitus without complications; D72.829 Elevated white blood cell count, unspecified; J44.9 Chronic obstructive pulmonary disease, unspecified; I10 Essential (primary) hypertension; I25.10 Atherosclerotic heart disease of native coronary artery without angina pectoris; I25.82 Chronic total occlusion of coronary artery; I48.91 Unspecified atrial fibrillation; I51.89 Other ill-defined heart diseases; F25.9 Schizoaffective disorder, unspecified
CPT/HCPCS: 31500; 36415; 36600; 71010; 80048; 80053; 80061; 82550; 82553; 82803; 82962; 83036; 84484; 85025; 85610; 85730; 87081; 93005; 93306; 94002; 96374; J2001; C1725; C1751; C1757; C1769; C1874; C1887; C1894; C9601; C9606; J0282; J0461; J1250; J1327; J1644; J1815; J2250; J2270; J2370; J2405; J3010; J7030; J7040; J7060; Q9967